=== PATIENT | female | born 1950 | race Caucasian/White ===

== ENCOUNTER 2018-09-05 13:30 | Inpatient (IN) | payer OTHER ==
[~2018-09-05] VITALS: Ht 167.6 cm; Wt 113.4 kg
[2018-09-05] MEDS ORDERED: RESTORIL30 M1 PO (15:00)
[2018-09-05] MEDS ORDERED: FOLIC ACID1 MG PO (15:00)
[2018-09-05] MEDS ORDERED: CLONAZEPAM1 MG PO (15:01)
[2018-09-05] MEDS ORDERED: ZANAFLEX4 M1 PO (15:01)
[2018-09-05] MEDS ORDERED: TRAMADOL HCL50 MG PO (15:01)
[2018-09-05] MEDS ORDERED: GABAPENTIN800 MG PO (15:02)
[2018-09-05] MEDS ORDERED: VERAPAMIL ER240 MG PO (15:02)
[2018-09-05] MEDS ORDERED: VALSARTAN-HCTZ1 EAC4 PO (15:03)
[2018-09-20] MEDS ORDERED: GABAPENTIN800 MG PO (09:59)
[2018-09-20] MEDS ORDERED: AMOX-CLAV 875-1 EACH PO (10:00)
[2018-09-20] MEDS ORDERED: COLACE100 MG PO (10:00)
[2018-09-20] MEDS ORDERED: PERCOCET 5-3251 EACH PO (10:01)
[2018-09-20] MEDS ORDERED: RESTORIL30 M1 PO (10:01)
== END 2018-09-21 16:08 | DRG 455 ==
LOC: PED 09-20 05:45 → O/R 09-20 05:45 → SURH 09-20 13:00 → PED 09-20 14:12
PROVIDERS: Orthopaedic Surgery Orthopaedic Surgery of the Spine
PROC: 0SG1071 Fusion of 2 or more Lumbar Vertebral Joints with Autologous Tissue Substitute, Posterior Approach, Posterior Column, Open Approach (ICD-10-PCS; 2018-09-20)
PROC: 0ST20ZZ Resection of Lumbar Vertebral Disc, Open Approach (ICD-10-PCS; 2018-09-20)
PROC: 0SG10AJ Fusion of 2 or more Lumbar Vertebral Joints with Interbody Fusion Device, Posterior Approach, Anterior Column, Open Approach (ICD-10-PCS; 2018-09-20)
PROC: 07DS3ZZ Extraction of Vertebral Bone Marrow, Percutaneous Approach (ICD-10-PCS; 2018-09-20)
PROC: 0SG10A0 Fusion of 2 or more Lumbar Vertebral Joints with Interbody Fusion Device, Anterior Approach, Anterior Column, Open Approach (ICD-10-PCS; principal; 2018-09-20 13:00)
DX: M47.26 Other spondylosis with radiculopathy, lumbar region (principal); M48.061 Spinal stenosis, lumbar region without neurogenic claudication; M51.16 Intervertebral disc disorders with radiculopathy, lumbar region; M43.16 Spondylolisthesis, lumbar region; I10 Essential (primary) hypertension